=== PATIENT | female | born 1995 | race Caucasian/White ===

== ENCOUNTER 2017-02-11 09:34 | Emergency (ER) | payer SELFPAY ==
[~2017-02-11 09:34] MED LIST: AUGMENTIN 875-11 TAB PO; SULFAMETHOXAZOLE; ZOFRAN ODT4 MG PO; ZOFRAN ODT4 MG/UDTAB PO
[2017-02-11] MEDS ORDERED: NO HOME MEDICATION XX (09:56)
[2017-02-11 10:56] LABS: PREGNANCY-SERUM NEGATIVE (NEGATIVE)
[2017-02-11 11:03] LABS: ALB/GLOB RATIO 1.2 (0.8-2.0); ALKALINE PHOSPHATASE 53 U/L (33-138); ALT/SGPT 13 U/L (12-78); ANION GAP 15 mmol/L (0-20); BASO % 0.2 % (0-2); BILIRUBIN,TOTAL 0.7 mg/dl (0-1.5); BLOOD UREA NITROGEN 11 mg/dl (6-24); CALCIUM 8.7 mg/dl (8.5-10.5); CARBON DIOXIDE-VENOUS 21 mmol/L (22-32); CHLORIDE 106 mmol/l (96-110); CREATININE 0.64 mg/dl (0.50-1.10); EOS % 0.1 % (0-7); GLUCOSE 103 mg/dL (70-110); HCT-HEMATOCRIT 37.2 % (34.0-49.0); HGB-HEMOGLOBIN 12.9 gm/dl (12.0-15.5); LIPASE 74 U/L (73-393); LYMPH % 15.5 % (20-45); LYMPH ABSOLUTE COUNT 1.4 tho/cmm (0.8-4.5); MCH (MEAN CORPUSCULAR HGB) 28.4 pg (28.0-32.0); MCHC MEAN CORPUSCULAR HGB CONC 34.7 % (32.0-36.0); MCV (MEAN CELL VOLUME) 81.9 fl (82.0-96.0); MEAN PLATELET VOLUME 11.1 cmc (9.4-12.4); MONO % 3.1 % (0-12); MONOCYTE ABSOLUTE COUNT 0.3 tho/cmm (0.0-1.2); NEUTROPHIL ABSOLUTE COUNT 7.1 tho/cmm (1.6-8.0); NEUTROPHIL-AUTOMATED 7.1 tho/cmm (1.6-8.0); NEUTROPHILS % 81.1 % (40-80); PLATELET COUNT 211 tho/cmm (150-450); POTASSIUM 4.1 mmol/L (3.7-5.1); RED BLOOD COUNT 4.54 mil/cmm (4.00-5.20); RED CELL DISTRIBUTION WIDTH 13.4 % (12.4-16.4); SODIUM 138 mmol/L (135-145); WHITE BLOOD COUNT 8.8 tho/cmm (4.0-10.0); eGFR VALUE FOR BLACK >90 mL/Min
[2017-02-11 11:04] LABS: AST/SGOT 34 U/L (10-40)
[2017-02-11] MEDS ORDERED: ZOFRAN ODT4 MG PO (12:05)
== END 2017-02-11 12:16 ==
LOC: EDMED 09:34
PROVIDERS: Emergency Medicine
DX: R11.2 Nausea with vomiting, unspecified (principal); R10.9 Unspecified abdominal pain; R19.7 Diarrhea, unspecified; J45.909 Unspecified asthma, uncomplicated; Z90.89 Acquired absence of other organs; F17.200 Nicotine dependence, unspecified, uncomplicated
CPT/HCPCS: C9113; J2405; J7030

== ENCOUNTER 2017-02-17 14:44 | Emergency (ER) | payer SELFPAY ==
[~2017-02-17 14:44] MED LIST changes: +NO HOME MEDICATION XX
[2017-02-17] MEDS ORDERED: ONDANSETRON ODT4 M1 PO (14:51)
[2017-02-17 18:03] LABS: BASO % 0.4 % (0-2); EOS % 0.2 % (0-7); HCT-HEMATOCRIT 41.3 % (34.0-49.0); HGB-HEMOGLOBIN 14.6 gm/dl (12.0-15.5); IMMATURE GRANULOCYTES ABSOLUTE 0.01 tho/cmm (0-0.03); IMMATURE GRANULOCYTES PERCENT 0.2 % (0-0.3); LYMPH % 40.5 % (20-45); LYMPH ABSOLUTE COUNT 2.2 tho/cmm (0.8-4.5); MCH (MEAN CORPUSCULAR HGB) 28.5 pg (28.0-32.0); MCHC MEAN CORPUSCULAR HGB CONC 35.4 % (32.0-36.0); MCV (MEAN CELL VOLUME) 80.7 fl (82.0-96.0); MEAN PLATELET VOLUME 10.4 cmc (9.4-12.4); MONO % 5.7 % (0-12); MONOCYTE ABSOLUTE COUNT 0.3 tho/cmm (0.0-1.2); NEUTROPHIL ABSOLUTE COUNT 2.9 tho/cmm (1.6-8.0); NEUTROPHIL-AUTOMATED 2.9 tho/cmm (1.6-8.0); PLATELET COUNT 232 tho/cmm (150-450); RED BLOOD COUNT 5.12 mil/cmm (4.00-5.20); RED CELL DISTRIBUTION WIDTH 13.1 % (12.4-16.4); WHITE BLOOD COUNT 5.5 tho/cmm (4.0-10.0)
[2017-02-17 18:16] LABS: ANION GAP 18 mmol/L (0-20); BLOOD UREA NITROGEN 10 mg/dl (6-24); CALCIUM 8.8 mg/dl (8.5-10.5); CARBON DIOXIDE-VENOUS 22 mmol/L (22-32); CHLORIDE 101 mmol/l (96-110); CREATININE 0.52 mg/dl (0.50-1.10); LIPASE 92 U/L (73-393); SODIUM 137 mmol/L (135-145); eGFR VALUE FOR BLACK >90 mL/Min
[2017-02-17 18:19] LABS: C-REACTIVE PROTEIN <0.3 mg/dl (0-0.9); GLUCOSE 69 mg/dL (70-110)
[2017-02-17 19:18] LABS: URINE BILIRUBIN NEGATIVE (NEG); URINE BLOOD NEGATIVE (NEG); URINE GLUCOSE (UA) NEGATIVE (NEG); URINE KETONE LARGE (NEG); URINE LEUKOCYTE ESTERASE NEGATIVE (NEG); URINE NITRITE NEGATIVE (NEG); URINE PROTEIN SMALL (NEG)
[2017-02-17 19:25] LABS: URINE APPEARANCE HAZY; URINE COLOR YELLOW
[2017-02-17 19:27] LABS: URINE MUCUS 1+; URINE RBC 0 /[HPF] (0-5); URINE WBC 0-3 /[HPF] (0-5)
== END 2017-02-17 21:35 ==
LOC: EDMED 14:44
PROVIDERS: Nurse Practitioner Family
DX: R10.13 Epigastric pain (principal); R10.12 Left upper quadrant pain; R11.10 Vomiting, unspecified; F17.210 Nicotine dependence, cigarettes, uncomplicated
CPT/HCPCS: J1200; J2270; J7030; Q9967